=== PATIENT | female | born 1940 | race Caucasian/White ===

== ENCOUNTER 2019-10-04 06:42 | Day surgery (SDC) | payer MEDICARE ==
[~2019-10-04] VITALS: Ht 139.7 cm; Wt 48.2 kg
[~2019-10-04 06:42] MED LIST: ASPI-12 PO; GABA-532 PO; LACT10SO PO; LACT1CAP73 PO; LENA25CA; LORA0.5T PO; METH-603 PO; OMEP20TA5 PO; ZOLP5TAB8 PO
[2019-10-04 06:54] VITALS: BP 183/64
[2019-10-04] MEDS ORDERED: GABA600T13 PO (06:58)
[2019-10-04] MEDS ORDERED: MULT-1085 PO (07:00)
[2019-10-04] MEDS ORDERED: fentaNYL/PF 50MCG/1 ML 2ML syringe ONE (07:04)
[2019-10-04] MEDS ORDERED: LIDOcaine Viscous 15ml cup ONE (07:04)
[2019-10-04] MEDS ORDERED: MIDAZolam 5mg/5ml vial ONE (07:04)
[2019-10-04] MEDS ORDERED: normal saline 500ml IV soln 500 ML IV SCH (07:15)
[2019-10-04 08:35] VITALS: BP 103/53
[2019-10-04 08:45] VITALS: BP 105/58
[2019-10-04 08:55] VITALS: BP 114/57
[2019-10-04 09:05] VITALS: BP 120/72
== END 2019-10-04 09:20 | disposition home or self-care (01) ==
LOC: GI LAB 06:42
PROVIDERS: ATTEND Internal Medicine Gastroenterology
DX: K22.0 Achalasia of cardia (principal)
CPT/HCPCS: 43236; 43249; C1726; G0500; J0585; J2250; J3010; J7040; 43243; 99152; A4620

== ENCOUNTER 2021-02-02 07:45 | Day surgery (SDC) | payer MEDICARE ==
[~2021-02-02] VITALS: Ht 147.3 cm; Wt 44.5 kg
[~2021-02-02 07:45] MED LIST changes: -GABA-532 PO; +GABA600T13 PO; -LACT10SO PO; -LACT1CAP73 PO; -LENA25CA; +MULT-1085 PO
[2021-02-02] MEDS ORDERED: fentaNYL/PF 50MCG/1 ML 2ML syringe ONE (07:56)
[2021-02-02] MEDS ORDERED: LIDOcaine Viscous 15ml cup ONE (07:57)
[2021-02-02] MEDS ORDERED: MIDAZolam 1 MG/ML 5ML VIAL ONE (07:57)
[2021-02-02 08:00] VITALS: BP 158/102
[2021-02-02] MEDS ORDERED: PREG150C PO (08:21)
[2021-02-02] MEDS ORDERED: POTA10CA44 PO (08:21)
[2021-02-02] MEDS ORDERED: ACYC-1 PO (08:21)
[2021-02-02] MEDS ORDERED: POMA3CAP PO (08:21)
[2021-02-02] MEDS ORDERED: LACT10SO67 (08:21)
[2021-02-02] MEDS ORDERED: FURO-150 PO (08:21)
[2021-02-02 08:49] VITALS: BP 158/102
[2021-02-02 08:54] VITALS: BP 125/56
[2021-02-02 08:59] VITALS: BP 134/67
[2021-02-02 09:04] VITALS: BP 132/67
[2021-02-02 09:09] VITALS: BP 146/56
== END 2021-02-02 09:49 | disposition home or self-care (01) ==
LOC: GI LAB 07:45
PROVIDERS: ATTEND Internal Medicine Gastroenterology
DX: R13.10 Dysphagia, unspecified (principal); K22.0 Achalasia of cardia; K29.60 Other gastritis without bleeding; K22.89 Other specified disease of esophagus; J44.9 Chronic obstructive pulmonary disease, unspecified; Z98.890 Other specified postprocedural states; Z87.891 Personal history of nicotine dependence; Z88.5 Allergy status to narcotic agent; Z88.8 Allergy status to other drugs, medicaments and biological substances; Z79.899 Other long term (current) drug therapy
CPT/HCPCS: 43236; 43249; 99153; C1726; G0500; J0585; J2250; J3010; J7040; Z7512; 43243; 99152; A4620

== ENCOUNTER 2023-04-28 11:42 | Day surgery (SDC) | payer MEDICARE ==
[~2023-04-28] VITALS: Ht 147.3 cm; Wt 45.9 kg
[~2023-04-28 11:42] MED LIST changes: +CHOL500050 PO; +CYAN100T47 PO; +LACT10SO67; -MULT-1085 PO; -OMEP20TA5 PO; +PREG150C PO; -ZOLP5TAB8 PO
[2023-04-28 12:12] VITALS: BP 160/80; PULSE 98; RESP 16
[2023-04-28] MEDS ORDERED: fentaNYL/PF 50MCG/1 ML 2ML syringe ONE ×2 (15:11)
[2023-04-28] MEDS ORDERED: MIDAZolam 1 MG/ML 5ML VIAL ONE ×2 (15:11→15:33)
[2023-04-28] MEDS ORDERED: LIDOcaine Viscous 15ml cup ONE (15:12)
[2023-04-28 15:45] VITALS: BP 123/71; PULSE 85; RESP 13; O2SAT 99
[2023-04-28 15:55] VITALS: BP 123/67; PULSE 85; RESP 16; O2SAT 98
[2023-04-28 16:05] VITALS: BP 129/67; PULSE 83; RESP 19; O2SAT 99
[2023-04-28 16:15] VITALS: BP 152/51; PULSE 86; RESP 16; O2SAT 97
== END 2023-04-28 16:17 | disposition home or self-care (01) ==
LOC: GI LAB 11:42
PROVIDERS: ATTEND Internal Medicine Gastroenterology
DX: R13.19 Other dysphagia (principal); K22.0 Achalasia of cardia
CPT/HCPCS: 43236; 43249; 99152; C1726; J0585; J2250; J3010; J7030; Z7512; 43239; 43243; 99153; A4620